=== PATIENT | female | born 1950 | race Caucasian/White ===

== ENCOUNTER 2022-10-17 11:24 | Emergency (ER) | payer MEDICARE, OTHER ==
--- NOTE | 2022-10-17 11:57 | ERPHSYRPT ---
- History of Present Illness Time Seen by Provider: 10/17/22 11:52 Source: patient Exam Limitations: no limitations Patient Subjective Stated Complaint: C/O bilateral lower extremity numbness and "just not feeling right" for the past few days. Patient is having "heart flut tering" this morning. Denies any pain. Triage Nursing Assessment: Patient ambulated back to ED without difficulties. No SOB. She is alert and oriented. QUINTERO WNL. Skin tone normal. No edema noted. Cap refill < 2 seconds. Physician History: Patient 72-year-old female presents to emergency department for evaluation. Patient complains of heart palpitations and paresthesias to both lower extremities and legs. Patient states she has been under significant stress over the past few days. Patient states "I just do not feel well. No associated chest pain. Patient states she is mildly short of breath. No nausea vomiting or diaphoresis. No diarrhea. No rash. Symptoms are mild to moderate in intensity. No specific worsening improving factors. Patient voices no other complaints or concerns at this time. Portions of this note were created with voice recognition technology. There may be grammatical, spelling, punctuation or sound alike errors Timing/Duration: today Severity: moderate Modifying Factors: Improves With: nothing Associated Symptoms: shortness of breath Allergies/Adverse Reactions: No Known Drug Allergies Allergy (Verified 10/17/22 11:26) Hx Tetanus, Diphtheria Vaccination/Date Given: Yes Hx Influenza Vaccination/Date Given: Yes Hx Pneumococcal Vaccination/Date Given: Yes Immunizations Up to Date: Yes Travel Risk - International Travel Have you traveled outside of the country in past 3 weeks: No - Coronavirus Screening Are you exhibiting any of the following symptoms?: No Close contact with a COVID-19 positive Pt in past 14-21 Days: No - Vaccine Status Have you recieved a Covid-19 vaccination: Yes 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 - Review of Systems Constitutional: No Symptoms, No Fever, No Chills Eyes: No Symptoms Ears, Nose, & Throat: No Symptoms Respiratory: No Symptoms, No Cough, No Dyspnea Cardiac: No Symptoms, No Chest Pain, No Edema, No Syncope Abdominal/Gastrointestinal: No Symptoms, No Abdominal Pain, No Nausea, No Vomiting, No Diarrhea Genitourinary Symptoms: No Symptoms, No Dysuria Musculoskeletal: No Symptoms, No Back Pain, No Neck Pain Skin: No Symptoms, No Rash Neurological: No Symptoms, No Dizziness, No Focal Weakness, No Sensory Changes Psychological: No Symptoms Endocrine: No Symptoms Hematologic/Lymphatic: No Symptoms Immunological/Allergic: No Symptoms All Other Systems: Reviewed and Negative - Past Medical History Pertinent Past Medical History: Yes Neurological History: No Pertinent History ENT History: No Pertinent History Cardiac History: High Cholesterol Respiratory History: No Pertinent History Endocrine Medical History: Hypothyroidism Musculoskeletal History: Osteoporosis GI Medical History: Hernia Other Medical History: FROSTBITE IN FEET WHEN YOUNG CHILD - Past Surgical History Past Surgical History: Yes Gastrointestinal: Hernia Repair Musculoskeletal: Other Female Surgical History: Hysterectomy Other Surgical History: RIGHT FOOT SURGERY, THYROID REMOVAL - Social History Smoking Status: Never smoker Exposure to second hand smoke: No Drug Use: none Patient Lives Alone: No - Nursing Vital Signs Nursing Vital Signs: Initial Vital Signs Temperature 99.1 F 10/17/22 11:31 Pulse Rate 101 H 10/17/22 11:31 Respiratory Rate 16 10/17/22 11:31 Blood Pressure 128/87 10/17/22 11:31 O2 Sat by Pulse Oximetry 99 10/17/22 11:31 Pain Scale Pain Intensity 0 - Physical Exam General Appearance: no apparent distress, alert Eye Exam: PERRL/EOMI, eyes nml inspection Ears, Nose, Throat Exam: normal ENT inspection, TMs normal, pharynx normal, moist mucous membranes Neck Exam: normal inspection, non-tender, supple, full range of motion Respiratory Exam: normal breath sounds, lungs clear, airway intact, No respiratory distress Cardiovascular Exam: regular rate/rhythm, normal heart sounds, normal peripheral pulses Gastrointestinal/Abdomen Exam: soft, normal bowel sounds, No tenderness, No mass Back Exam: normal inspection, normal range of motion, No CVA tenderness, No vertebral tenderness Extremity Exam: normal inspection, normal range of motion, pelvis stable Neurologic Exam: alert, oriented x 3, cooperative, normal mood/affect, nml cerebellar function, nml station & gait, sensation nml, No motor deficits Skin Exam: normal color, warm, dry, No rash Lymphatic Exam: No adenopathy SpO2 Interpretation: normal SpO2: 99 O2 Delivery: Room Air - Course Nursing assessment & vital signs reviewed: Yes EKG Interpreted by Me: RATE (100), Sinus Tach, NORMAL AXIS, Right [place] Devia tion, NORMAL INTERVALS - Radiology Exams Chest X-ray Interpretation: Teleradiologist Report (Nonacute hyperinflated chest.) Ordered Tests: Active Orders 24 hr Category Date Time Status Pharmacy Innovation Assistant STAT Care 10/17/22 11:51 Active EKG-ER Only STAT Care 10/17/22 11:50 Active IV Insertion STAT Care 10/17/22 11:50 Active Pulse Oximetry (ED) STAT Care 10/17/22 11:50 Active CHEST 1 VIEW (PORTABLE) Stat Exams 10/17/22 13:01 Completed CBC W DIFF Stat Lab 10/17/22 12:10 Completed CMP Stat Lab 10/17/22 12:10 Completed CULTURE,URINE Stat Lab 10/17/22 12:28 Received D-DIMER QUANTITATIVE Stat Lab 10/17/22 12:10 Completed NT PRO BNP Stat Lab 10/17/22 12:10 Completed TROPONIN Q4H Lab 10/17/22 12:10 Completed TROPONIN Q4H Lab 10/17/22 14:56 Completed TROPONIN Q4H Lab 10/17/22 20:00 Ordered UA W/RFX UR CULTURE Stat Lab 10/17/22 12:28 Completed Medication Summary Discontinued Medications Generic Name Dose Route Start Last Admin Trade Name Freq PRN Reason Stop Dose Admin Ceftriaxone Sodium/Dextrose 1 g in 50 mls @ 100 mls/hr 10/17/22 13:00 10/17/22 14:06 Rocephin 1 Gm-D5w 50 Ml Bag IV 10/17/22 13:29 Infused STAT STA Infusion Ceftriaxone Sodium/Dextrose Confirm 10/17/22 13:15 Rocephin 1 Gm-D5w 50 Ml Bag Administered 10/17/22 13:16 Dose 1 g in 50 mls @ ud IV .STK-MED ONE Lab/Rad Data: Laboratory Result Diagrams 10/17/22 12:10 10/17/22 12:10 Laboratory Results 10/17/22 10/17/22 10/17/22 Range/Units 14:56 12:28 12:10 WBC (4.0-10.5) x10^3/uL RBC (4.1-5.4) x10^6/uL Hgb (12.0-16.0) g/dL Hct (35-47) % MCV (78-100) fL MCH (26-32) pg MCHC (32-36) g/dL RDW (11.5-14.0) % Plt Count (150-450) x10^3/uL MPV (7.5-11.0) fL Gran % (36.0-66.0) % Immature Gran % (Auto) (0.00-0.4) % Nucleat RBC Rel Count (0.00-0.1) % Eos # (Auto) (0-0.5) x10^3/uL Immature Gran # (Auto) (0.00-0.03) x10^3u/L Absolute Lymphs (auto) (1.0-4.6) x10^3/uL Absolute Monos (auto) (0.0-1.3) x10^3/uL Absolute Nucleated RBC (0.00-0.01) x10^3u/L Lymphocytes % (24.0-44.0) % Monocytes % (0.0-12.0) % Eosinophils % (0.00-5.0) % Basophils % (0.0-0.4) % Absolute Granulocytes (1.4-6.9) x10^3/uL Basophils # (0-0.4) x10^3/uL D-Dimer (0.0-0.50) mg/L Sodium (137-145) mmol/L Potassium (3.5-5.1) mmol/L Chloride (98-107) mmol/L Carbon Dioxide (22-30) mmol/L Anion Gap (5-15) MEQ/L BUN (7-17) mg/dL Creatinine (0.52-1.04) mg/dL Estimated GFR ML/MIN Glucose (74-106) mg/dL Calcium (8.4-10.2) mg/dL Total Bilirubin (0.2-1.3) mg/dL AST (14-36) U/L ALT (0-35) U/L Alkaline Phosphatase (38-126) U/L Troponin I < 0.012 < 0.012 (0.000-0.034) ng/mL NT-Pro-B Natriuret Pep (0-900) pg/mL Serum Total Protein (6.3-8.2) g/dL Albumin (3.5-5.0) g/dL Urine Color Dark Yellow A (Yellow) Urine Appearance Clear (Clear) Urine pH 6.0 (4.6-8.0) Ur Specific [place] 1.025 (1.005-1.030) Urine Protein 300 A (Negative) Urine Glucose (UA) Negative (Negative) mg/dL Urine Ketones 15 A (Negative) Urine Blood Negative (Negative) Urine Nitrite Negative (Negative) Urine Bilirubin Small A (Negative) Urine Urobilinogen 1.0 A (0.2) mg/dL Ur Leukocyte Esterase Trace A (Negative) U Hyaline Cast (Auto) 6-10 A (0-2) /LPF Urine Microscopic RBC 0-2 (0-5) /HPF Urine Microscopic WBC 6-10 A (0-5) /HPF Ur Epithelial Cells Few (None Seen) /HPF Urine Bacteria None Seen (None Seen) /HPF Urine Culture Reflexed YES (NO) 10/17/22 10/17/22 10/17/22 Range/Units 12:10 12:10 12:10 WBC 4.6 (4.0-10.5) x10^3/uL RBC 4.46 (4.1-5.4) x10^6/uL Hgb 13.6 (12.0-16.0) g/dL Hct 41.5 (35-47) % MCV 93.0 (78-100) fL MCH 30.5 (26-32) pg MCHC 32.8 (32-36) g/dL RDW 12.9 (11.5-14.0) % Plt Count 308 (150-450) x10^3/uL MPV 9.7 (7.5-11.0) fL Gran % 65.4 (36.0-66.0) % Immature Gran % (Auto) 0.2 (0.00-0.4) % Nucleat RBC Rel Count 0.0 (0.00-0.1) % Eos # (Auto) 0.09 (0-0.5) x10^3/uL Immature Gran # (Auto) 0.01 (0.00-0.03) x10^3u/L Absolute Lymphs (auto) 1.13 (1.0-4.6) x10^3/uL Absolute Monos (auto) 0.33 (0.0-1.3) x10^3/uL Absolute Nucleated RBC 0.00 (0.00-0.01) x10^3u/L Lymphocytes % 24.5 (24.0-44.0) % Monocytes % 7.2 (0.0-12.0) % Eosinophils % 2.0 (0.00-5.0) % Basophils % 0.7 (0.0-0.4) % Absolute Granulocytes 3.02 (1.4-6.9) x10^3/uL Basophils # 0.03 (0-0.4) x10^3/uL D-Dimer 0.19 (0.0-0.50) mg/L Sodium 136 L (137-145) mmol/L Potassium 3.7 (3.5-5.1) mmol/L Chloride 103 (98-107) mmol/L Carbon Dioxide 27 (22-30) mmol/L Anion Gap 9.9 (5-15) MEQ/L BUN 15 (7-17) mg/dL Creatinine 0.73 (0.52-1.04) mg/dL Estimated GFR > 60.0 ML/MIN Glucose 165 H (74-106) mg/dL Calcium 9.1 (8.4-10.2) mg/dL Total Bilirubin 0.70 (0.2-1.3) mg/dL AST 23 (14-36) U/L ALT 22 (0-35) U/L Alkaline Phosphatase 55 (38-126) U/L Troponin I (0.000-0.034) ng/mL NT-Pro-B Natriuret Pep 91.8 (0-900) pg/mL Serum Total Protein 7.5 (6.3-8.2) g/dL Albumin 4.4 (3.5-5.0) g/dL Urine Color (Yellow) Urine Appearance (Clear) Urine pH (4.6-8.0) Ur Specific [place] (1.005-1.030) Urine Protein (Negative) Urine Glucose (UA) (Negative) mg/dL Urine Ketones (Negative) Urine Blood (Negative) Urine Nitrite (Negative) Urine Bilirubin (Negative) Urine Urobilinogen (0.2) mg/dL Ur Leukocyte Esterase (Negative) U Hyaline Cast (Auto) (0-2) /LPF Urine Microscopic RBC (0-5) /HPF Urine Microscopic WBC (0-5) /HPF Ur Epithelial Cells (None Seen) /HPF Urine Bacteria (None Seen) /HPF Urine Culture Reflexed (NO) - Progress Progress: improved Progress Note: Heart score 2 Patient 72-year-old female presents emergency department for evaluation of heart palpitations. Patient is also been experiencing some lower extremity paresthesias. Heart palpitations occurred today. Lower extremity paresthesias below her knee have been ongoing for approximately 3 weeks since Jessica. No chest pain. Physical examination was nonremarkable. Review of system was nonremarkable. Patient symptoms are acute to subacute. Complexity is moderate. No significant comorbidities to contribute to patient's symptoms however patient does state that she has been under a tremendous amount of stress due to her 's illnesses. Tests ordered include chest x-ray which showed hyperinflated lungs. CBC CMP essentially noncontributory. Urinalysis reveals a urinary tract infection. Patient received a dose of Rocephin in our ED. I spoke to Dr. Lala regarding the findings of the patient's urinalysis. She advised to hold off on outpatient antibiotics. She advised to hold off until blood cultures become available. BNP within normal limits. Troponin negative x2. Chest x-ray shows hyperinflated lungs otherwise negative. EKG was normal sinus rhythm. No ST segment changes results of all test were reviewed. D-dimer negative. Information was used in the medical decision-making process. . Case discussed with Dr. Lala patient's primary care doctor who advised patient to follow-up in her office tomorrow morning. Patient agrees to do so. Plan of care discussed with patient. Daughter at bedside. They agree to follow-up with Dr. Lala in the morning. They voiced no other complaints or concerns at this time. We discussed obtaining a telemetry neuro consult for the paresthesias however patient declined. She states that she prefers to go home at this time and would follow-up with Dr. Lala regarding the need for specialty consultation. Level of EM service provided was moderate. Complexity of problem addressed was moderate. Amount and complexity of data reviewed and analyzed was moderate. Risk of complications and risk of morbidity/mortality of patient management was moderate. No critical care time. Patient served as an independent historian. Although daughter at bedside contributed to the HPI. No water fitness instructor required. Patient currently feels well. No active symptoms. Patient requesting discharge and voices no other complaints concerns at this time. Portions of this note were created with voice recognition technology. There may be grammatical, spelling, punctuation or sound alike errors 10/17/22 16:45 Discussed with : Tigre Will see patient in: office Counseled pt/family regarding: lab results, diagnosis, need for follow-up, rad results - Departure Departure Disposition: Home Clinical Impression: Proteinuria, Urinary tract infection Condition: Stable Critical Care Time: No Referrals: GARRET THRASHER DO [Primary Care Provider] - Follow up/PCP as directed Instructions: Urinary Tract Infection, Adult (DC)
[2022-10-17 12:32] LABS: Absolute Neutrophil Ct (ANC) 3.02 x10^3/uL (1.4-6.9); Basophil (Absolute #) 0.03 x10^3/uL (0-0.4); Eosinophil (Absolute #) 0.09 x10^3/uL (0-0.5); Hematocrit 41.5 % (35-47); Hemoglobin 13.6 g/dL (12.0-16.0); Lymphocyte (Absolute #) 1.13 x10^3/uL (1.0-4.6); Lymphocytes % 24.5 % (24.0-44.0); Mean Corpuscular Hemoglobin 30.5 pg (26-32); Mean Corpuscular Hgb Concent. 32.8 g/dL (32-36); Mean Platelet Volume 9.7 fL (7.5-11.0); Monocyte (Absolute #) 0.33 x10^3/uL (0.0-1.3); Monocytes % 7.2 % (0.0-12.0); Neutrophil % 65.4 % (36.0-66.0); Platelet Count 308 x10^3/uL (150-450); Red Blood Count 4.46 x10^6/uL (4.1-5.4); Red Cell Distribution Width 12.9 % (11.5-14.0); White Blood Count 4.6 x10^3/uL (4.0-10.5)
[2022-10-17 12:44] LABS: Appearance Clear (Clear); Bacteria None Seen /HPF (None Seen); Bilirubin Small (Negative); Blood Negative (Negative); Epithelial Cells Few /HPF (None Seen); Glucose, Urine Negative (Negative); Ketones 15 (Negative); Leukocyte Esterase Trace (Negative); Nitrite Negative (Negative); Protein,Urine Dip 300 (Negative); RBC 0-2 /HPF (0-5); Specific Gravity 1.025 (1.005-1.030)
[2022-10-17 12:45] LABS: ADD URINE CULTURE? YES (NO)
[2022-10-17 12:49] LABS: ALBUMIN 4.4 g/dL (3.5-5.0); ALKALINE PHOSPHATASE 55 U/L (38-126); ANION GAP 9.9 MEQ/L (5-15); BLOOD UREA NITROGEN 15 mg/dL (7-17); CHLORIDE 103 mmol/L (98-107); Calcium 9.1 mg/dL (8.4-10.2); Carbon Dioxide 27 mmol/L (22-30); Creatinine 1 0.73 mg/dL (0.52-1.04); EST GLOMERULAR FILTRATION RATE > 60.0 ML/MIN; Glucose 165 mg/dL (74-106); NT PRO BNP 91.8 pg/mL (0-900); Potassium 3.7 mmol/L (3.5-5.1); SGOT/AST 23 U/L (14-36); SGPT/ALT 22 U/L (0-35); SODIUM 136 mmol/L (137-145); Total Protein 7.5 g/dL (6.3-8.2)
[2022-10-17] MEDS ORDERED: ROCEPHIN 1 Gm-D5w 50 ml Bag** 1 G/50 ML IVPB IV STA (13:00)
[2022-10-17] MEDS ORDERED: ROCEPHIN 1 Gm-D5w 50 ml Bag** 1 G/50 ML IVPB IV ONE (13:15)
--- NOTE | 2022-10-17 13:35 | XRAY ---
Indication: Palpitations. Comparison: None Portable chest hyperinflated and clear. Heart and mediastinal structures within normal limits. Bony thorax intact with osteopenia and mild degenerative changes. Impression: Nonacute hyperinflated chest.
[2022-10-17 17:02] VITALS: BP 113/69; PULSE 82
[2022-10-17 17:14] VITALS: O2SAT 99
== END 2022-10-17 17:16 | disposition home or self-care (01) ==
LOC: ED 11:24
DX: N39.0 Urinary tract infection, site not specified (principal); R80.9 Proteinuria, unspecified; R00.2 Palpitations; R20.2 Paresthesia of skin; E78.5 Hyperlipidemia, unspecified
CPT/HCPCS: 36000; 36415; 71045; 80053; 81001; 83880; 84484; 85025; 85379; 87086; 93005; 93041; 94760; 96365; 99284; J0696